=== PATIENT | female | born 1955 | race Caucasian/White ===

== ENCOUNTER 2019-03-06 16:32 | Inpatient (IN) ==
[2019-03-06] MEDS ORDERED: TYLENOL 325 MG TAB PO PRN (17:00)
[2019-03-06] MEDS ORDERED: ZOFRAN INJ 4 MG VIAL IVP PRN (17:00)
[2019-03-06] MEDS ORDERED: ROBITUSSIN DM PO PRN (17:00)
[2019-03-06 17:40] LABS: BASOPHILS # (AUTO) 0.1 X10^3/uL (0.0-0.1); BASOPHILS % (AUTO) 1.1 % (0.2-1.0); EOSINOPHILS # (AUTO) 0.1 x10^3/uL (0.0-0.2); EOSINOPHILS % (AUTO) 1.3 % (0.9-2.9); HEMATOCRIT 31.8 % (36.0-47.0); HEMOGLOBIN 10.9 g/dL (12.0-16.0); LYMPHOCYTES # (AUTO) 1.2 X10^3/uL (1.3-2.9); MEAN CORPUSCULAR HEMOGLOBIN 32.7 pg (27.0-34.0); MEAN CORPUSCULAR HGB CONC 34.4 g/dL (33.0-35.0); MEAN CORPUSCULAR VOLUME 95.1 fL (80.0-100.0); MEAN PLATELET VOLUME 7.7 fL (7.4-11.0); MONOCYTES # (AUTO) 0.7 x10^3/uL (0.3-0.8); MONOCYTES % (AUTO) 12.3 % (0.0-13.0); NEUTROPHILS # (AUTO) 3.8 x10^3/uL (2.2-4.8); NEUTROPHILS % (AUTO) 64.3 % (42.0-75.0); PLATELET COUNT 467 X10^3/uL (150.0-450.0); RED BLOOD COUNT 3.34 X10^6/uL (3.5-5.4); RED CELL DISTRIBUTION WIDTH 15.8 % (11.6-16.5); WHITE BLOOD COUNT 5.9 X10^3/uL (3.6-10.0)
[2019-03-06] MEDS ORDERED: NS 1000 ML 1,000 ML ONE (17:43)
[2019-03-06] MEDS ORDERED: MAGIC MOUTHWASH ONE (17:43)
[2019-03-06 17:52] LABS: ALANINE AMINOTRANSFERASE 34 Units/L (12-78); ALBUMIN 3.3 g/dL (3.4-5.0); ALKALINE PHOSPHATASE 144 Units/L (46-116); ASPARTATE AMINO TRANSFERASE 31 Units/L (15-37); BLOOD UREA NITROGEN 16 mg/dL (7-18); CALCIUM 8.5 mg/dL (8.5-10.1); CHLORIDE 102 mmol/L (98-107); COR CA(FOR HYPOALB) 9.1 mg/dL (8.5-10.1); CREATININE 1.51 mg/dL (0.55-1.02); SODIUM 139 mmol/L (136-145); TOTAL PROTEIN 6.7 g/dL (6.4-8.2); eGFR NON BLACK RACES 37 (>60)
[2019-03-06 17:55] LABS: BAND NEUTROPHILS % 1 % (0-10); PLATELET MORPHOLOGY COMMENT NORMAL (NORMAL)
[2019-03-06] MEDS: MAGIC MOUTHWASH MT SCH ×2 (17:57→20:35)
[2019-03-06] MEDS: NS 1000 ML 1,000 ML IV SCH (17:57)
[2019-03-06 18:10] VITALS: BMI 24.5
[2019-03-06 19:38] LABS: BILIRUBIN,URINE NEGATIVE (NEGATIVE); BLOOD/HEMOGLOBIN,URINE 1+ (NEGATIVE); GLUCOSE, URINE NEGATIVE (NEGATIVE); KETONES,URINE NEGATIVE (NEGATIVE); LEUKOCYTE ESTERASE ,URINE 1+ (NEGATIVE); NITRITES,URINE NEGATIVE (NEGATIVE); PROTEIN,URINE 1+ (NEGATIVE); UROBILINOGEN,URINE NORMAL (NORMAL)
[2019-03-06 19:39] LABS: APPEARANCE,URINE SLIGHTLY HAZY (CLEAR); COLOR,URINE YELLOW (YELLOW)
[2019-03-06 19:44] LABS: BACTERIA,URINE TRACE /HPF (NEGATIVE); MUCUS,URINE FEW /HPF (NEGATIVE); RBC,URINE 0-2 /HPF (NONE SEEN); SQUAMOUS EPITHELIAL CELL,UR MODERATE /HPF (NEGATIVE)
[2019-03-06] MEDS ORDERED: QUESTRAN POWDER FOR ORAL SUSP PO SCH (21:00)
[2019-03-07 05:19] LABS: BASOPHILS # (AUTO) 0.1 X10^3/uL (0.0-0.1); BASOPHILS % (AUTO) 1.3 % (0.2-1.0); EOSINOPHILS # (AUTO) 0.1 x10^3/uL (0.0-0.2); EOSINOPHILS % (AUTO) 1.8 % (0.9-2.9); LYMPHOCYTES # (AUTO) 1.4 X10^3/uL (1.3-2.9); LYMPHOCYTES % (AUTO) 22.9 % (21.0-51.0); MEAN CORPUSCULAR HEMOGLOBIN 33.4 pg (27.0-34.0); MEAN CORPUSCULAR HGB CONC 34.8 g/dL (33.0-35.0); MEAN CORPUSCULAR VOLUME 95.8 fL (80.0-100.0); MEAN PLATELET VOLUME 8.4 fL (7.4-11.0); MONOCYTES # (AUTO) 0.8 x10^3/uL (0.3-0.8); NEUTROPHILS # (AUTO) 3.6 x10^3/uL (2.2-4.8); PLATELET COUNT 419 X10^3/uL (150.0-450.0); RED CELL DISTRIBUTION WIDTH 15.8 % (11.6-16.5)
[2019-03-07 05:37] LABS: ALANINE AMINOTRANSFERASE 41 Units/L (12-78); ALBUMIN 2.6 g/dL (3.4-5.0); ALKALINE PHOSPHATASE 126 Units/L (46-116); ASPARTATE AMINO TRANSFERASE 45 Units/L (15-37); BLOOD UREA NITROGEN 14 mg/dL (7-18); CARBON DIOXIDE 24.6 mmol/L (21-32); CHLORIDE 107 mmol/L (98-107); COR CA(FOR HYPOALB) 9.1 mg/dL (8.5-10.1); CREATININE 1.45 mg/dL (0.55-1.02); SODIUM 142 mmol/L (136-145); TOTAL PROTEIN 5.3 g/dL (6.4-8.2); eGFR NON BLACK RACES 39 (>60)
[2019-03-07 05:57] LABS: HEMOGLOBIN 8.7 g/dL (12.0-16.0)
[2019-03-07 05:58] LABS: PLATELET MORPHOLOGY COMMENT NORMAL (NORMAL)
[2019-03-07] MEDS ORDERED: POTASSIUM CHL 40 MEQ/NS 0.45% 500 ML IV PRN (06:04)
[2019-03-07] MEDS ORDERED: KLOR-CON PO PRN (06:04)
[2019-03-07] MEDS ORDERED: K-RIDER 10 MEQ/NS 100 ML 10 MEQ/100 ML BAG IV PRN (06:04)
[2019-03-07] MEDS ORDERED: POTASSIUM CHLORIDE LIQ 20 MEQ UDC PO PRN (06:04)
[2019-03-07] MEDS ORDERED: MICRO K EXTEN CAP 10 MEQ PO PRN (06:04)
[2019-03-07] MEDS ORDERED: POTASSIUM CHL 60 MEQ/NS 0.45% 500 ML IV PRN (06:04)
[2019-03-07] MEDS ORDERED: ESTRACE PO SCH (09:00)
[2019-03-07] MEDS ORDERED: PROVERA PO SCH (09:00)
[2019-03-07] MEDS: ASPIRIN EC 81 MG PO SCH (09:05)
[2019-03-07] MEDS: PEPCID TAB 20 MG PO SCH (09:06)
[2019-03-07] MEDS: MAGIC MOUTHWASH MT SCH ×4 (09:06→20:32)
[2019-03-07] MEDS: CULTURELLE PRO-WELL PROBIOTIC CAP PO SCH (09:06)
[2019-03-07] MEDS: ROCEPHIN VIAL 2 GRAMS IVP SCH (09:07)
[2019-03-07] MEDS: VITAMIN B-12 PO SCH (09:07)
[2019-03-07] MEDS: K-DUR TAB 20 MEQ PO PRN (09:07)
[2019-03-07] MEDS: MAGNESIUM SULFATE 1 GRAM/100 mL PREMIX 1 GM/100 ML BAG IV PRN ×2 (09:08→09:54)
[2019-03-07] MEDS: MEGACE PO SCH ×2 (11:41→20:32)
[2019-03-07] MEDS: NS 1000 ML 1,000 ML IV SCH (16:34)
[2019-03-08 05:34] LABS: BASOPHILS # (AUTO) 0.2 X10^3/uL (0.0-0.1); BASOPHILS % (AUTO) 3.1 % (0.2-1.0); EOSINOPHILS # (AUTO) 0.1 x10^3/uL (0.0-0.2); EOSINOPHILS % (AUTO) 1.8 % (0.9-2.9); HEMATOCRIT 25.1 % (36.0-47.0); HEMOGLOBIN 8.6 g/dL (12.0-16.0); LYMPHOCYTES # (AUTO) 1.6 X10^3/uL (1.3-2.9); LYMPHOCYTES % (AUTO) 31.9 % (21.0-51.0); MEAN CORPUSCULAR HEMOGLOBIN 32.6 pg (27.0-34.0); MEAN CORPUSCULAR HGB CONC 34.4 g/dL (33.0-35.0); MEAN CORPUSCULAR VOLUME 94.7 fL (80.0-100.0); MEAN PLATELET VOLUME 7.7 fL (7.4-11.0); MONOCYTES # (AUTO) 0.8 x10^3/uL (0.3-0.8); MONOCYTES % (AUTO) 15.7 % (0.0-13.0); NEUTROPHILS # (AUTO) 2.4 x10^3/uL (2.2-4.8); NEUTROPHILS % (AUTO) 47.5 % (42.0-75.0); PLATELET COUNT 422 X10^3/uL (150.0-450.0); RED BLOOD COUNT 2.65 X10^6/uL (3.5-5.4); RED CELL DISTRIBUTION WIDTH 15.9 % (11.6-16.5)
[2019-03-08 05:39] LABS: ALANINE AMINOTRANSFERASE 71 Units/L (12-78); ALBUMIN 2.6 g/dL (3.4-5.0); ALKALINE PHOSPHATASE 121 Units/L (46-116); ASPARTATE AMINO TRANSFERASE 69 Units/L (15-37); BLOOD UREA NITROGEN 17 mg/dL (7-18); CALCIUM 8.2 mg/dL (8.5-10.1); CARBON DIOXIDE 25.9 mmol/L (21-32); CHLORIDE 109 mmol/L (98-107); COR CA(FOR HYPOALB) 9.3 mg/dL (8.5-10.1); CREATININE 1.24 mg/dL (0.55-1.02); MAGNESIUM 2.2 mg/dL (1.7-2.9); SODIUM 143 mmol/L (136-145); TOTAL PROTEIN 5.4 g/dL (6.4-8.2); eGFR NON BLACK RACES 46 (>60)
[2019-03-08] MEDS: K-DUR TAB 20 MEQ PO PRN (05:57)
[2019-03-08] MEDS: ASPIRIN EC 81 MG PO SCH (08:25)
[2019-03-08] MEDS: CULTURELLE PRO-WELL PROBIOTIC CAP PO SCH (08:26)
[2019-03-08] MEDS: MAGIC MOUTHWASH MT SCH ×4 (08:26→20:47)
[2019-03-08] MEDS: MEGACE PO SCH ×2 (08:31→20:46)
[2019-03-08] MEDS: ROCEPHIN VIAL 2 GRAMS IVP SCH (08:32)
[2019-03-08] MEDS: VITAMIN B-12 PO SCH (08:32)
[2019-03-08] MEDS: PEPCID TAB 20 MG PO SCH (08:32)
[2019-03-08 10:36] LABS: AMYLASE 43 Units/L (25-115); LIPASE 304 Units/L (73-393)
[2019-03-08] MEDS: NS 1000 ML 1,000 ML IV SCH (17:08)
--- NOTE | 2019-03-08 22:05 | PCM.PROG ---
Progress Note - Progress Note for Day of Date of Exam: 03/07/19 - Subjective Subjective: WAS TRANSFERRED YESTERDAY FROM [facility]. SHE WAS BEING TREATED FOR SEPTIC SHOCK DUE TO URINARY TRACT INFECTION WITH E.COLI. SHE IS RECEIVING IV ANTIBIOTICS. TODAY, SHE IS ALERT AND ORIENTED, LYING IN BED ON MORNING ROUNDS. SHE REPORTS MILD SUPRAPUBIC PAIN AT TIMES. ON EXAMINATION, HEART IS REGULAR IN RATE AND RHYTHM. BILATERAL LUNGS ARE NOTED WITH DIMINISHED LUNG SOUNDS THROUGHOUT. ABDOMEN IS ROUND, SOFT, AND NOTED WITH NORMAL BOWEL SOUNDS IN ALL QUADRANTS. HER VITALS THIS MORNING ARE: 98.2-65-18-97%-142/68. LABS WERE OBTAINED. ABNORMAL LAB VALUES INCLUDE THE FOLLOWING: RBC 2.60, HGB 8.7, HCT 25.0, CREATININE 1.45, GLUCOSE 110, CALCIUM 8.0, AST 45, ALK PHOS 126, TOTAL PROTEIN 5.3, ALBUMIN 2.6. SHE IS CURRENTLY RECEIVING ROCEPHIN 1G IV DAILY. WE WILL CONTINUE WITH CURRENT PLAN OF CARE TODAY. OTHERWISE, WE PLAN TO FOLLOW UP WITH AM LABS AND CONTINUE TO MONITOR. - Past Medical Family Social History Past Med/Fam/Surg Hx: No changes since H&P Allergies: Allergies promethazine [From Phenergan] Allergy (Verified 03/06/19 16:59) - Review of Systems ROS: No change since H&P - Vital Signs and I&O's Vital Signs: Temperature 98.5 F Pulse Rate [Left Radial] 63 Respiratory Rate 20 Blood Pressure [Left Arm] 122/58 Blood Pressure 92/58 O2 Sat by Pulse Oximetry 98 Intake and Output: Intake & Output 03/06/19 03/07/19 03/08/19 03/09/19 11:59 11:59 11:59 11:59 Intake Total 1440 / 1440 2500 / 2500 1190 / 1190 Balance 1440 / 1440 2500 / 2500 1190 / 1190 - Physical Exam Oriented: Normal Eyes: Normal Ear: Normal Nose: Normal Throat: Normal Respiratory: Diminished Cardiovascular: Normal. negative: S3, S4, Murmur : Normal Auscultation: Bowel Sounds: Normal Palpation: Normal Tenderness: Suprapubic, Mild. negative: Rebound, Guarding, Rigidity Skin: Normal Musculoskeletal: Normal Psychiatric: Normal Mood Description: Calm Affect: Normal Speech Pattern: Clear, Appropriate - Laboratory and Diagnostics Result Diagrams: 03/08/19 05:06 03/08/19 05:06 Labs: Laboratory WBC 5.0 X10^3/uL (3.6-10.0) 03/08/19 05:06 RBC 2.65 X10^6/uL (3.5-5.4) L 03/08/19 05:06 Hgb 8.6 g/dL (12.0-16.0) L 03/08/19 05:06 Hct 25.1 % (36.0-47.0) L 03/08/19 05:06 MCV 94.7 fL (80.0-100.0) 03/08/19 05:06 MCH 32.6 pg (27.0-34.0) 03/08/19 05:06 MCHC 34.4 g/dL (33.0-35.0) 03/08/19 05:06 RDW 15.9 % (11.6-16.5) 03/08/19 05:06 Plt Count 422 X10^3/uL (150.0-450.0) 03/08/19 05:06 Plt Count Comment Adequate (ADEQUATE) 03/07/19 04:23 MPV 7.7 fL (7.4-11.0) 03/08/19 05:06 Neut % (Auto) 47.5 % (42.0-75.0) 03/08/19 05:06 Lymph % (Auto) 31.9 % (21.0-51.0) 03/08/19 05:06 [place] % (Auto) 15.7 % (0.0-13.0) H 03/08/19 05:06 Eos % (Auto) 1.8 % (0.9-2.9) 03/08/19 05:06 Baso % (Auto) 3.1 % (0.2-1.0) H 03/08/19 05:06 Neut # (Auto) 2.4 x10^3/uL (2.2-4.8) 03/08/19 05:06 Lymph # (Auto) 1.6 X10^3/uL (1.3-2.9) 03/08/19 05:06 [place] # (Auto) 0.8 x10^3/uL (0.3-0.8) 03/08/19 05:06 Eos # (Auto) 0.1 x10^3/uL (0.0-0.2) 03/08/19 05:06 Baso # (Auto) 0.2 X10^3/uL (0.0-0.1) H 03/08/19 05:06 Absolute Nucleated RBC 0.1 /100WBC 03/08/19 05:06 Total Counted 100 03/07/19 04:23 Neutrophils % (Manual) 67 % (39-76) 03/07/19 04:23 Band Neutrophils % 1 % (0-10) 03/06/19 17:23 Lymphocytes % (Manual) 23 % (13-43) 03/07/19 04:23 Monocytes % (Manual) 9 % (4-9) 03/07/19 04:23 Eosinophils % (Manual) 1 % (0-6) 03/07/19 04:23 Plt Morphology Comment Normal (NORMAL) 03/07/19 04:23 RBC Morphology Normal (NORMAL) 03/07/19 04:23 Sodium 143 mmol/L (136-145) 03/08/19 05:06 Corrected Sodium TNP 03/08/19 05:06 Potassium 3.8 mmol/L (3.5-5.1) 03/08/19 05:06 Chloride 109 mmol/L (98-107) H 03/08/19 05:06 Carbon Dioxide 25.9 mmol/L (21-32) 03/08/19 05:06 BUN 17 mg/dL (7-18) 03/08/19 05:06 Creatinine 1.24 mg/dL (0.55-1.02) H 03/08/19 05:06 Est GFR (MDRD) Af Amer 56 (>60) L 03/08/19 05:06 Est GFR (MDRD) Non-Af 46 (>60) L 03/08/19 05:06 Glucose 100 mg/dL (65-99) H 03/08/19 05:06 Calcium 8.2 mg/dL (8.5-10.1) L 03/08/19 05:06 Corrected Calcium 9.3 mg/dL (8.5-10.1) 03/08/19 05:06 Magnesium 2.2 mg/dL (1.7-2.9) 03/08/19 05:06 Total Bilirubin 0.70 mg/dL (0.2-1.0) 03/08/19 05:06 AST 69 Units/L (15-37) H 03/08/19 05:06 ALT 71 Units/L (12-78) 03/08/19 05:06 Alkaline Phosphatase 121 Units/L (46-116) H 03/08/19 05:06 Total Protein 5.4 g/dL (6.4-8.2) L 03/08/19 05:06 Albumin 2.6 g/dL (3.4-5.0) L 03/08/19 05:06 Globulin 2.8 g/dL (2.5-4.5) 03/08/19 05:06 Albumin/Globulin Ratio 0.9 Ratio (1.1-2.1) L 03/08/19 05:06 Amylase 43 Units/L (25-115) 03/08/19 10:18 Lipase 304 Units/L (73-393) 03/08/19 10:18 Specimen Type Clean catch urine 03/06/19 19:18 Urine Color Yellow (YELLOW) 03/06/19 19:18 Urine Appearance Slightly hazy (CLEAR) 03/06/19 19:18 Urine pH 7.0 (5.0 - 8.0) 03/06/19 19:18 Ur Specific [place] 1.005 (1.000-1.030) 03/06/19 19:18 Urine Protein 1+ (NEGATIVE) 03/06/19 19:18 Urine Glucose (UA) Negative (NEGATIVE) 03/06/19 19:18 Urine Ketones Negative (NEGATIVE) 03/06/19 19:18 Urine Occult Blood 1+ (NEGATIVE) 03/06/19 19:18 Urine Nitrite Negative (NEGATIVE) 03/06/19 19:18 Urine Bilirubin Negative (NEGATIVE) 03/06/19 19:18 Urine Urobilinogen Normal (NORMAL) 03/06/19 19:18 Ur Leukocyte Esterase 1+ (NEGATIVE) 03/06/19 19:18 Urine RBC 0-2 /HPF (NONE SEEN) 03/06/19 19:18 Urine WBC 3-5 /HPF (NONE SEEN) 03/06/19 19:18 Ur Squamous Epith Cells Moderate /HPF (NEGATIVE) 03/06/19 19:18 Urine Bacteria Trace /HPF (NEGATIVE) 03/06/19 19:18 Urine Mucus Few /HPF (NEGATIVE) 03/06/19 19:18 Ur Culture Indicated? No/not indicated 03/06/19 19:18 - Plan (1) Septic shock Status: Resolved Plan: IV FLUIDS, IV ROCEPHIN, CONTINUE TO MONITOR (2) E. coli UTI (urinary tract infection) Status: Acute (3) Abdominal pain Status: Acute Qualifiers: Abdominal location: generalized Qualified Code(s): R10.84 - Generalized abdominal pain
--- NOTE | 2019-03-08 22:24 | PCM.PROG ---
Progress Note - Progress Note for Day of Date of Exam: 03/08/19 - Subjective Subjective: WAS TRANSFERRED FROM [facility]. SHE WAS BEING TREATED FOR SEPTIC SHOCK DUE TO URINARY TRACT INFECTION WITH E.COLI. SHE IS RECEIVING IV ANTIBIOTICS. TODAY, SHE IS ALERT AND ORIENTED, LYING IN BED ON MORNING ROUNDS. SHE CONTINUES WITH MILD SUPRAPUBIC PAIN AT TIMES. ON EXAMINATION, HEART IS REGULAR IN RATE AND RHYTHM. BILATERAL LUNGS ARE NOTED WITH DIMINISHED LUNG SOUNDS THROUGHOUT. ABDOMEN IS ROUND, SOFT, AND NOTED WITH NORMAL BOWEL SOUNDS IN ALL QUADRANTS. HER VITALS THIS MORNING ARE: 98.3-59-20-98%-139/64. LABS WERE OBTAINED. ABNORMAL LAB VALUES INCLUDE THE FOLLOWING: RBC 2.65, HGB 8.6, HCT 25.1, CHLORIDE 109, CREATININE 1.24, GLUCOSE 100, CALCIUM 8.2, AST 69, ALK PHOS 121, TOTAL PROTEIN 5.4, ALBUMIN 2.6. SHE IS CURRENTLY RECEIVING ROCEPHIN 1G IV DAILY. WE WILL CONTINUE WITH CURRENT PLAN OF CARE TODAY. OTHERWISE, WE PLAN TO FOLLOW UP WITH AM LABS AND CONTINUE TO MONITOR. - Past Medical Family Social History Past Med/Fam/Surg Hx: No changes since H&P Allergies: Allergies promethazine [From Phenergan] Allergy (Verified 03/06/19 16:59) - Review of Systems ROS: No change since H&P - Vital Signs and I&O's Vital Signs: Temperature 98.5 F Pulse Rate [Left Radial] 63 Respiratory Rate 20 Blood Pressure [Left Arm] 122/58 Blood Pressure 92/58 O2 Sat by Pulse Oximetry 98 Intake and Output: Intake & Output 03/06/19 03/07/19 03/08/19 03/09/19 11:59 11:59 11:59 11:59 Intake Total 1440 / 1440 2500 / 2500 1190 / 1190 Balance 1440 / 1440 2500 / 2500 1190 / 1190 - Physical Exam Oriented: Normal Eyes: Normal Ear: Normal Nose: Normal Throat: Normal Respiratory: Diminished Cardiovascular: Normal. negative: S3, S4, Murmur : Normal Auscultation: Bowel Sounds: Normal Tenderness: Suprapubic, Mild. negative: Rebound, Guarding, Rigidity Skin: Normal Musculoskeletal: Normal Psychiatric: Normal Mood Description: Calm Affect: Normal Speech Pattern: Clear, Appropriate - Laboratory and Diagnostics Result Diagrams: 03/08/19 05:06 03/08/19 05:06 Labs: Laboratory WBC 5.0 X10^3/uL (3.6-10.0) 03/08/19 05:06 RBC 2.65 X10^6/uL (3.5-5.4) L 03/08/19 05:06 Hgb 8.6 g/dL (12.0-16.0) L 03/08/19 05:06 Hct 25.1 % (36.0-47.0) L 03/08/19 05:06 MCV 94.7 fL (80.0-100.0) 03/08/19 05:06 MCH 32.6 pg (27.0-34.0) 03/08/19 05:06 MCHC 34.4 g/dL (33.0-35.0) 03/08/19 05:06 RDW 15.9 % (11.6-16.5) 03/08/19 05:06 Plt Count 422 X10^3/uL (150.0-450.0) 03/08/19 05:06 Plt Count Comment Adequate (ADEQUATE) 03/07/19 04:23 MPV 7.7 fL (7.4-11.0) 03/08/19 05:06 Neut % (Auto) 47.5 % (42.0-75.0) 03/08/19 05:06 Lymph % (Auto) 31.9 % (21.0-51.0) 03/08/19 05:06 [place] % (Auto) 15.7 % (0.0-13.0) H 03/08/19 05:06 Eos % (Auto) 1.8 % (0.9-2.9) 03/08/19 05:06 Baso % (Auto) 3.1 % (0.2-1.0) H 03/08/19 05:06 Neut # (Auto) 2.4 x10^3/uL (2.2-4.8) 03/08/19 05:06 Lymph # (Auto) 1.6 X10^3/uL (1.3-2.9) 03/08/19 05:06 [place] # (Auto) 0.8 x10^3/uL (0.3-0.8) 03/08/19 05:06 Eos # (Auto) 0.1 x10^3/uL (0.0-0.2) 03/08/19 05:06 Baso # (Auto) 0.2 X10^3/uL (0.0-0.1) H 03/08/19 05:06 Absolute Nucleated RBC 0.1 /100WBC 03/08/19 05:06 Total Counted 100 03/07/19 04:23 Neutrophils % (Manual) 67 % (39-76) 03/07/19 04:23 Band Neutrophils % 1 % (0-10) 03/06/19 17:23 Lymphocytes % (Manual) 23 % (13-43) 03/07/19 04:23 Monocytes % (Manual) 9 % (4-9) 03/07/19 04:23 Eosinophils % (Manual) 1 % (0-6) 03/07/19 04:23 Plt Morphology Comment Normal (NORMAL) 03/07/19 04:23 RBC Morphology Normal (NORMAL) 03/07/19 04:23 Sodium 143 mmol/L (136-145) 03/08/19 05:06 Corrected Sodium TNP 03/08/19 05:06 Potassium 3.8 mmol/L (3.5-5.1) 03/08/19 05:06 Chloride 109 mmol/L (98-107) H 03/08/19 05:06 Carbon Dioxide 25.9 mmol/L (21-32) 03/08/19 05:06 BUN 17 mg/dL (7-18) 03/08/19 05:06 Creatinine 1.24 mg/dL (0.55-1.02) H 03/08/19 05:06 Est GFR (MDRD) Af Amer 56 (>60) L 03/08/19 05:06 Est GFR (MDRD) Non-Af 46 (>60) L 03/08/19 05:06 Glucose 100 mg/dL (65-99) H 03/08/19 05:06 Calcium 8.2 mg/dL (8.5-10.1) L 03/08/19 05:06 Corrected Calcium 9.3 mg/dL (8.5-10.1) 03/08/19 05:06 Magnesium 2.2 mg/dL (1.7-2.9) 03/08/19 05:06 Total Bilirubin 0.70 mg/dL (0.2-1.0) 03/08/19 05:06 AST 69 Units/L (15-37) H 03/08/19 05:06 ALT 71 Units/L (12-78) 03/08/19 05:06 Alkaline Phosphatase 121 Units/L (46-116) H 03/08/19 05:06 Total Protein 5.4 g/dL (6.4-8.2) L 03/08/19 05:06 Albumin 2.6 g/dL (3.4-5.0) L 03/08/19 05:06 Globulin 2.8 g/dL (2.5-4.5) 03/08/19 05:06 Albumin/Globulin Ratio 0.9 Ratio (1.1-2.1) L 03/08/19 05:06 Amylase 43 Units/L (25-115) 03/08/19 10:18 Lipase 304 Units/L (73-393) 03/08/19 10:18 Specimen Type Clean catch urine 03/06/19 19:18 Urine Color Yellow (YELLOW) 03/06/19 19:18 Urine Appearance Slightly hazy (CLEAR) 03/06/19 19:18 Urine pH 7.0 (5.0 - 8.0) 03/06/19 19:18 Ur Specific [place] 1.005 (1.000-1.030) 03/06/19 19:18 Urine Protein 1+ (NEGATIVE) 03/06/19 19:18 Urine Glucose (UA) Negative (NEGATIVE) 03/06/19 19:18 Urine Ketones Negative (NEGATIVE) 03/06/19 19:18 Urine Occult Blood 1+ (NEGATIVE) 03/06/19 19:18 Urine Nitrite Negative (NEGATIVE) 03/06/19 19:18 Urine Bilirubin Negative (NEGATIVE) 03/06/19 19:18 Urine Urobilinogen Normal (NORMAL) 03/06/19 19:18 Ur Leukocyte Esterase 1+ (NEGATIVE) 03/06/19 19:18 Urine RBC 0-2 /HPF (NONE SEEN) 03/06/19 19:18 Urine WBC 3-5 /HPF (NONE SEEN) 03/06/19 19:18 Ur Squamous Epith Cells Moderate /HPF (NEGATIVE) 03/06/19 19:18 Urine Bacteria Trace /HPF (NEGATIVE) 03/06/19 19:18 Urine Mucus Few /HPF (NEGATIVE) 03/06/19 19:18 Ur Culture Indicated? No/not indicated 03/06/19 19:18 - Plan (1) Septic shock Status: Resolved Plan: IV FLUIDS, IV ROCEPHIN, CONTINUE TO MONITOR (2) E. coli UTI (urinary tract infection) Status: Acute (3) Abdominal pain Status: Acute Qualifiers: Abdominal location: generalized Qualified Code(s): R10.84 - Generalized abdominal pain
[2019-03-09 05:52] LABS: BASOPHILS # (AUTO) 0.1 X10^3/uL (0.0-0.1); BASOPHILS % (AUTO) 2.5 % (0.2-1.0); EOSINOPHILS # (AUTO) 0.1 x10^3/uL (0.0-0.2); EOSINOPHILS % (AUTO) 1.7 % (0.9-2.9); HEMATOCRIT 24.4 % (36.0-47.0); HEMOGLOBIN 8.7 g/dL (12.0-16.0); LYMPHOCYTES # (AUTO) 1.8 X10^3/uL (1.3-2.9); LYMPHOCYTES % (AUTO) 32.5 % (21.0-51.0); MEAN CORPUSCULAR HEMOGLOBIN 33.6 pg (27.0-34.0); MEAN CORPUSCULAR HGB CONC 35.5 g/dL (33.0-35.0); MEAN CORPUSCULAR VOLUME 94.7 fL (80.0-100.0); MEAN PLATELET VOLUME 7.7 fL (7.4-11.0); MONOCYTES # (AUTO) 0.7 x10^3/uL (0.3-0.8); MONOCYTES % (AUTO) 13.1 % (0.0-13.0); NEUTROPHILS # (AUTO) 2.7 x10^3/uL (2.2-4.8); NEUTROPHILS % (AUTO) 50.2 % (42.0-75.0); PLATELET COUNT 434 X10^3/uL (150.0-450.0); RED BLOOD COUNT 2.58 X10^6/uL (3.5-5.4); RED CELL DISTRIBUTION WIDTH 16.2 % (11.6-16.5); WHITE BLOOD COUNT 5.4 X10^3/uL (3.6-10.0)
[2019-03-09 05:58] LABS: ALANINE AMINOTRANSFERASE 61 Units/L (12-78); ALBUMIN 2.7 g/dL (3.4-5.0); ALKALINE PHOSPHATASE 105 Units/L (46-116); ASPARTATE AMINO TRANSFERASE 40 Units/L (15-37); BLOOD UREA NITROGEN 18 mg/dL (7-18); CALCIUM 7.9 mg/dL (8.5-10.1); CHLORIDE 110 mmol/L (98-107); COR CA(FOR HYPOALB) 8.9 mg/dL (8.5-10.1); CREATININE 1.17 mg/dL (0.55-1.02); MAGNESIUM 1.8 mg/dL (1.7-2.9); SODIUM 142 mmol/L (136-145); TOTAL PROTEIN 5.4 g/dL (6.4-8.2); eGFR NON BLACK RACES 50 (>60)
[2019-03-09 08:34] VITALS: BP 130/65
[2019-03-09] MEDS: VITAMIN B-12 PO SCH (08:59)
[2019-03-09] MEDS: MAGIC MOUTHWASH MT SCH (08:59)
[2019-03-09] MEDS: ROCEPHIN VIAL 2 GRAMS IVP SCH (08:59)
[2019-03-09] MEDS: CULTURELLE PRO-WELL PROBIOTIC CAP PO SCH (08:59)
[2019-03-09] MEDS: PEPCID TAB 20 MG PO SCH (09:00)
[2019-03-09] MEDS: MEGACE PO SCH (09:00)
[2019-03-09] MEDS: ASPIRIN EC 81 MG PO SCH (09:00)
== END 2019-03-09 10:35 | disposition home or self-care (01) | DRG 871 ==
LOC: MED/SURG 16:32
PROVIDERS: ADMIT Internal Medicine; ATTEND Internal Medicine
DX: R65.21 Severe sepsis with septic shock; A41.51 Sepsis due to Escherichia coli [E. coli]; Z79.899 Other long term (current) drug therapy; Z79.01 Long term (current) use of anticoagulants; N39.0 Urinary tract infection, site not specified
CPT/HCPCS: 36415; 80053; 81001; 82150; 82378; 83690; 83735; 85025; 87040; S0179; J0696; J2405; J3475; J7030